=== PATIENT | female | born 1985 | race Caucasian/White ===

== ENCOUNTER 2023-04-24 16:30 | Emergency (ER) | payer MEDICAID ==
[~2023-04-24] VITALS: Ht 165.1 cm; Wt 115.0 kg
[2023-04-24 16:35] VITALS: BP 121/78; PULSE 94; RESP 18; TEMP 97.8; O2SAT 100
[2023-04-24] MEDS ORDERED: ibuprofen tablet 400 MG TABLET PO ONE (16:40)
== END 2023-04-24 17:15 | disposition home or self-care (01) ==
LOC: ER 16:31
DX: S93.402A Sprain of unspecified ligament of left ankle, initial encounter (principal); W19.XXXA Unspecified fall, initial encounter; Y93.89 Activity, other specified; Y92.89 Other specified places as the place of occurrence of the external cause; Y99.8 Other external cause status
CPT/HCPCS: 29515; 73610; 99283; L1930